=== PATIENT | female | born 1975 | race Caucasian/White ===

== ENCOUNTER 2016-08-04 08:01 | Day surgery (SDC) | payer MEDICAID ==
[2016-07-29 09:58] LABS: ADD SCAN DIFF NO
[2016-07-29 10:07] LABS: BASOPHILS % 0.4 % (0.0-2.0); EOSINOPHILS # 0.1 10^3/ul (0.0-0.5); HEMATOCRIT 40.6 % (37.0-47.0); HEMOGLOBIN 12.9 g/dl (12.0-16.0); LYMPHOCYTES # 1.6 10^3/ul (0.8-2.9); MEAN CORPUSCULAR HEMOGLOBIN 29.1 pg (29.0-33.0); MEAN CORPUSCULAR HGB CONC 31.8 g/dl (32.0-37.0); MEAN CORPUSCULAR VOLUME 91.6 fl (82.0-101.0); MEAN PLATELET VOLUME 8.7 fl (7.4-10.4); MONOCYTE # 0.4 10^3/ul (0.3-0.9); MONOCYTES % 7.5 % (0.0-11.0); NEUTROPHIL # 2.8 10^3/ul (1.6-7.5); NEUTROPHILS % 57.9 % (39.0-77.0); PLATELET COUNT 357 10^3/UL (140-415); RED BLOOD COUNT 4.43 10^6/ul (4.20-5.40); WHITE BLOOD COUNT 4.9 10^3/ul (4.8-10.8)
[2016-07-29 10:24] LABS: INR 0.89; PT RATIO 0.9
[2016-07-29 10:25] LABS: PARTIAL THROMBOPLASTIN TIME 29.2 Sec (25.0-35.0)
[2016-07-29 10:27] LABS: CREATININE 0.54 mg/dl (0.44-1.00); POTASSIUM 4.4 mmol/L (3.5-5.1)
[2016-07-29 10:28] LABS: CALCIUM 9.2 mg/dl (8.4-10.2)
[2016-08-03 17:46] VITALS: BMI 29.1
[2016-08-04] VITALS (13 sets, daily range): BP systolic 111–119; BP diastolic 60–72; PULSE 60–71; RESP 16–18; Ht 154.9 cm; Wt 70.0 kg
[~2016-08-04] VITALS: Ht 154.9 cm; Wt 70.0 kg
[2016-08-04] MEDS ORDERED: CEFAZOLIN 1 GM/50 ML (PMX) 50 ML IVPB ONE (08:30)
[2016-08-04] MEDS: SOD CHLORIDE 0.9% 1,000 ML IV SCH (08:30)
[2016-08-04] MEDS ORDERED: NASO17 NASAL (09:33)
[2016-08-04] MEDS ORDERED: LORA10TA3 PO (09:33)
[2016-08-04] MEDS ORDERED: SUCCINYLCHOLINE CHLORIDE 100 MG/5 ML SYG IV ONE (10:20)
[2016-08-04] MEDS ORDERED: ONDANSETRON 4 MG INJ ONE (10:20)
[2016-08-04] MEDS ORDERED: FENTAnyl 50 MCG/ML VIAL ONE (10:20)
[2016-08-04] MEDS ORDERED: ROCURONIUM 50 MG INJ ONE (10:20)
[2016-08-04] MEDS ORDERED: CEFAZOLIN 1 GM INJ ONE (10:20)
[2016-08-04] MEDS ORDERED: PROPOFOL 20 ML ONE (10:20)
[2016-08-04] MEDS ORDERED: METOCLOPRAMIDE 10 MG INJ ONE (10:21)
[2016-08-04] MEDS ORDERED: ISOSULFAN BLUE 1% 5 ML INJ SC ONE (10:24)
[2016-08-04] MEDS ORDERED: ONDANSETRON 4 MG INJ IV PRN ×2 (11:30→12:30)
[2016-08-04] MEDS ORDERED: MEPERIDINE 25 MG INJ IV PRN (11:30)
[2016-08-04] MEDS ORDERED: FENTAnyl 50 MCG/ML VIAL IV PRN ×2 (11:30)
[2016-08-04] MEDS ORDERED: HYDROmorphONE (0.2 MG/ML) 10ML SYG IV PRN ×3 (11:30)
[2016-08-04] MEDS ORDERED: ACETAMINOPHEN 1000MG/100ML IV 100 ML IVPB PRN (12:30)
--- NOTE | 2016-08-04 12:30 | OPR ---
DATE OF OPERATION: 08/04/2016 PREOPERATIVE DIAGNOSIS: Invasive cancer, right breast. POSTOPERATIVE DIAGNOSIS: Invasive cancer, right breast. OPERATION PERFORMED: Right partial mastectomy and axillary dissection utilizing sentinel lymph node technique. ANESTHESIA: General. ANESTHESIOLOGIST: Joss Pruett MD SURGEON: Eran Jang MD CUSTOMER SUPPORT ANALYST: Caio Miller MD INDICATIONS FOR PROCEDURE: The patient is a 41-year-old female who underwent surveillance mammograp hy. She was found to have a suspicious lesion in her right breast. Workup including core biopsy re vealed an approximately 1.4 cm invasive cancer. She was counseled as to risks versus benefits of br east conservation surgery. She consented and was scheduled for surgery. DESCRIPTION OF PROCEDURE: The patient was brought to the operating theater, placed under general an esthesia. The right breast and axillary regions were prepped and draped in the usual sterile fashio n. The mass was palpable and it was at the 6 o'clock location adjacent to the nipple-areolar border . Approximately 4 mL of 1% Lymphazurin blue dye were then injected peritumorally. The breast was g ently massaged for approximately 12 minutes. A 3 cm incision was made at the right axillary hairlin e. Subcutaneous tissue was dissected with cautery down through the clavipectoral fascia. A dye-sta ined lymphatic was identified and traced to a sentinel node; however, there were additional abnormal appearing lymph nodes associated with this node. Therefore, Dr. Jang made decision to perform an axillary dissection with blunt dissection along the chest wall. The long thoracic nerve was identif ied and kept out of harm's way. More superiorly, the axillary vein was identified and kept out of h arm's way, as was the thoracodorsal neurovascular bundle. The sentinel node and additional level 1 and level 2 axillary nodes were meticulously resected using LigaSure device. They were sent for pat hologic analysis. The wound was irrigated. Minimal bleeding was controlled with cautery. A #10 fl at Naga-Lockhart drain was then brought through the right mid axillary line, cut to size and laid wi thin the axilla. It was secured in place with 2-0 nylon suture in the standard fashion. The skin w as then reapproximated with a 4-0 Vicryl suture in subcuticular fashion. Attention was then directed towards performing partial mastectomy. A periareolar incision was made from the 3 o'clock location through the 6 o'clock location to the 9 o'clock location. Subcutaneous tissue was then dissected with cautery. The skin edges were then elevated with skin hooks and wide circumferential dissection of the tissue associated with the mass then took place. Specimen was sybil vated, transected, oriented, and sent for permanent pathologic analysis. The wound was irrigated. Minimal bleeding was controlled with cautery. The skin was reapproximated with 4-0 Vicryl suture in subcuticular fashion. Dermabond was then applied to both incisions. Patient tolerated the procedu re well. The estimated blood loss was 30 mL. There were no complications and the patient was trans ported in stable condition to the recovery room where circumferential compression dressing was appli ed. Dictated By: ERAN ARGUETA/HUMPHREY Conf#: [id number] DID#: [id number]
[2016-08-04] MEDS: morphine 2 MG INJ IV PRN ×3 (13:45→20:13)
[2016-08-04] MEDS: D5W-0.45 NACL + KCL 20 MEQ 1,000 ML IV SCH ×2 (14:21→21:53)
[2016-08-05] MEDS: D5W-0.45 NACL + KCL 20 MEQ 1,000 ML IV SCH ×2 (06:40→12:19)
[2016-08-05 07:54] VITALS: BP 113/67; RESP 18
[2016-08-05] MEDS: SOD CHLORIDE 0.9% 1,000 ML IV SCH (08:39)
[2016-08-05] MEDS ORDERED: HYDROCODONE/APAP (5/325) TAB PO PRN (11:30)
[2016-08-05 13:00] VITALS: BP 117/68; PULSE 64; RESP 16
[2016-08-05 17:00] VITALS: BP 113/65; PULSE 68; RESP 16
[2016-08-05] MEDS ORDERED: HYDR-3498 PO (17:05)
--- NOTE | 2016-08-05 18:03 | HP ---
DATE OF ADMISSION: 08/04/2016 HISTORY OF PRESENT ILLNESS: The patient is a 41-year-old female who denies any prior medical histor y except for allergic rhinitis. The patient underwent surveillance mammography and was found to hav e suspicious lesion in her right breast. The workup including core biopsy revealed invasive cancer, 1.4 cm. The patient was evaluated by Dr. Jang in general surgery consultation, and the patient wa s brought to the hospital and underwent right partial mastectomy and axillary dissection utilizing s entinel lymph technique. Postoperatively, the patient experienced some significant pain, and the pa cachorro was admitted for further evaluation and management. PAST MEDICAL HISTORY: Per HPI. PAST SURGICAL HISTORY: The patient had minor cutaneous surgery on her back. FAMILY HISTORY: Negative for history of breast or ovarian cancer. SOCIAL HISTORY: The patient lives at home with her family. The patient denies any tobacco use, den ies any alcohol use, and denies any illicit drug use. ALLERGIES: NO KNOWN ALLERGIES. HOME MEDICATIONS: 1. Claritin. 2. Nasonex. REVIEW OF SYSTEMS: A 12-point review of systems is negative unless what is mentioned in the HPI. PHYSICAL ASSESSMENT: GENERAL: Well-developed, well-nourished female who currently is awake, alert. VITAL SIGNS: Temperature is 98.7, pulse is 64, blood pressure is 113/67, respiratory rate 18, oxyge n saturation 98% on room air. HEENT: Head is atraumatic, normocephalic. Pupils equal, round, reactive to light and accommodation . Oral mucosa is pink and moist. NECK: Supple, no cervical lymphadenopathy, no thyromegaly. CHEST: Lungs clear bilaterally. There are no rhonchi, wheezes, or rales noted. Status post right breast surgery with a dry, clean, and intact dressing and right axillary DYLAN. CARDIOVASCULAR: Normal S1, S2. No murmurs, gallops, clicks, or rubs noted. ABDOMEN: Round, soft, nondistended, nontender. Bowel sounds present. There is no guarding and no rebound tenderness. EXTREMITIES: There is no edema, clubbing, cyanosis. Pulses equal bilaterally 2+. SKIN: There is no rash, petechiae noted. NEUROLOGIC: The patient is awake, alert, and oriented x4. No focal deficits noted. Motor strength 5/5 in all extremities. LABORATORY DATA: On admission, CBC: White blood cells 4.9, hemoglobin 12.9, hematocrit 40.6, plate lets 357. Chemistry: Sodium is 139, potassium 4.4, chloride 104, carbon dioxide 26, anion gap 15, BUN is 15, creatinine 0.54, glucose 94, calcium is 9.2. PT is 12.0, INR is 0.89, PTT is 29.2. ASSESSMENT AND PLAN: Invasive cancer of the right breast status post right partial mastectomy and a xillary dissection utilizing sentinel lymph node technique by Dr. Jang on 08/04/2016. We are going to admit patient to the medical/surgical floor. Continue Tylenol and Morphine p.r.n. for pain and Zofran p.r.n. for nausea. Continue IV fluids. Monitor electrolytes. We will continue sequential c ompression device for deep venous thrombosis prophylaxis. Further recommendations based on clinical course. Plan of care discussed with Dr. Richmond. Dictated By: RACHEL PATEL EMBEDDED SOFTWARE MANAGER for KARIME RICHMOND MD SR/NTS Conf#: [id number] DID#: [id number]
== END 2016-08-05 19:45 | disposition home or self-care (01) ==
LOC: SDS 08:01 → MS2 13:10 → SDS 08-05 19:45
PROVIDERS: ATTEND Surgery Surgical Oncology
DX: C50.911 Malignant neoplasm of unspecified site of right female breast (principal)
CPT/HCPCS: 19301; 38500; 38792; 80048; 84703; 85025; 85610; 85730; 88307; 88331; J0330; J0690; J2270; J2405; J2765; J3010; J3480; J7030; Z7512; Z7610; Q9968

== ENCOUNTER 2017-02-07 09:27 | Day surgery (SDC) | payer MEDICAID ==
[~2017-02-07] VITALS: Ht 154.9 cm; Wt 76.5 kg
[~2017-02-07 09:27] MED LIST: HYDR-3498 PO; LORA10TA3 PO; NASO17 NASAL
[2017-02-07 11:03] VITALS: Ht 154.9 cm; Wt 76.5 kg
[2017-02-07 11:06] VITALS: BP 134/91; PULSE 76; RESP 16
[2017-02-07] MEDS ORDERED: CEFAZOLIN 1 GM/50 ML (PMX) 50 ML IVPB ONE ×2 (11:30→14:25)
[2017-02-07] MEDS ORDERED: SOD CHLORIDE 0.9% 1,000 ML IV SCH (11:30)
[2017-02-07] MEDS ORDERED: POLYMYXIN/BACITRACIN 1L IRRIG IRR ONE (11:30)
[2017-02-07] MEDS ORDERED: HEPARIN 1000 UNITS/ML 10 ML INJ ONE (14:25)
[2017-02-07] MEDS ORDERED: MIDAZOLAM 1 MG/ML 2 ML INJ ONE (14:26)
[2017-02-07] MEDS ORDERED: SOD CHLORIDE 0.9% 500 ML ONE (14:26)
[2017-02-07] MEDS ORDERED: FENTAnyl 50 MCG/ML VIAL ONE (14:26)
[2017-02-07] MEDS ORDERED: LIDOCAINE 1%/EPI 30 ML INJ ONE (14:26)
--- NOTE | 2017-02-07 14:41 | RADRPT ---
Echocardiogram Report Patient Name: BONNIE WRIGHT Gender: Female Date: 1975 Study Date: 07-Feb-2017 Motion Picture Narrator: Reg [facility] Location: O Ref. Physician: WINNIE OSBORN Quality: Adequate Procedures: Transthoracic echocardiogram with complete 2D, M-Mode, and doppler examination. Indications: Breast CA. 2D/M Mode Doppler Measurement Value Normal Ranges Measurement Value Normal Ranges LVIDd 2D 4.5 3.5 - 5.6 cm AV Peak Bishop 1.5 m/sec LVIDs 2D 2.8 2.1 - 4.1 cm AV Peak PG 9.0 mmHg LVPWd 2D 0.8 0.6 - 1.1 cm LVOT Peak Bishop 1.0 m/sec AoR Diam 2D 2.6 2.0 - 3.7 cm LVOT Peak PG 4.0 mmHg ESV 2D 30.1 cm3 MV E Peak Bishop 0.9 m/sec EF 2D 66.6 50.0 - 65.0 % MV A Peak Bishop 0.8 m/sec LA Dimen 2D 3.6 2.3 - 4.0 cm MV E/A 1.2 MV Decel Time 190 msec MV E/A 1.2 TR Peak Bishop 2.1 m/sec TR Peak PG 17.0 mmHg RVSP 20.0 mmHg Findings Left Ventricle: Normal left ventricular systolic function. Normal left ventricular cavity size. Normal left ventricular wall thickness. Ejection fraction is visually estimated at 60 %. Right Ventricle: Normal right ventricular size. Normal right ventricular systolic function. Left Atrium: The left atrium is normal in size. Right Atrium: The right atrium is normal in size. Mitral Valve: Mild mitral leaflet calcification. Mild mitral annular calcification. Trace mitral regurgitation. Aortic Valve: Normal appearance of the aortic valve. No significant aortic stenosis or insufficiency. Tricuspid Valve: Normal appearance of the tricuspid valve. Estimated peak PA systolic pressure 20 mmHg. There is trace tricuspid regurgitation. Pericardium: Normal pericardium with no significant pericardial effusion. Aorta: Normal aortic root. IVC: Normal size and normal respiratory collapse consistent with normal right atrial pressure. Conclusions 1.Normal left ventricular systolic function. Normal left ventricular cavity size. Normal left ventricular wall thickness. Ejection fraction is visually estimated at 60 %. 2.Normal right ventricular size. Normal right ventricular systolic function. 3.The left atrium is normal in size. 4.The right atrium is normal in size. 5.No significant valvular stenosis or regurgitation seen. 6.Normal pericardium with no significant pericardial effusion. Electronically Signed By: Shawn Park 07-Feb-2017 14:40:59 -0700 Patient Name: BONNIE WRIGHT Study Date: 07-Feb-2017 [id number]
--- NOTE | 2017-02-07 14:41 | RADRPT ---
Echocardiogram Report Patient Name: BONNIE WRIGHT Gender: Female Date: 1975 Study Date: 07-Feb-2017 [place]: Reg [facility] Location: O Ref. Physician: WINNIE OSBORN Quality: Adequate Procedures: Transthoracic echocardiogram with complete 2D, M-Mode, and doppler examination. Indications: Breast CA. 2D/M Mode Doppler Measurement Value Normal Ranges Measurement Value Normal Ranges LVIDd 2D 4.5 3.5 - 5.6 cm AV Peak Bishop 1.5 m/sec LVIDs 2D 2.8 2.1 - 4.1 cm AV Peak PG 9.0 mmHg LVPWd 2D 0.8 0.6 - 1.1 cm LVOT Peak Bishop 1.0 m/sec AoR Diam 2D 2.6 2.0 - 3.7 cm LVOT Peak PG 4.0 mmHg ESV 2D 30.1 cm3 MV E Peak Bishop 0.9 m/sec EF 2D 66.6 50.0 - 65.0 % MV A Peak Bishop 0.8 m/sec LA Dimen 2D 3.6 2.3 - 4.0 cm MV E/A 1.2 MV Decel Time 190 msec MV E/A 1.2 TR Peak Bishop 2.1 m/sec TR Peak PG 17.0 mmHg RVSP 20.0 mmHg Findings Left Ventricle: Normal left ventricular systolic function. Normal left ventricular cavity size. Normal left ventricular wall thickness. Ejection fraction is visually estimated at 60 %. Right Ventricle: Normal right ventricular size. Normal right ventricular systolic function. Left Atrium: The left atrium is normal in size. Right Atrium: The right atrium is normal in size. Mitral Valve: Mild mitral leaflet calcification. Mild mitral annular calcification. Trace mitral regurgitation. Aortic Valve: Normal appearance of the aortic valve. No significant aortic stenosis or insufficiency. Tricuspid Valve: Normal appearance of the tricuspid valve. Estimated peak PA systolic pressure 20 mmHg. There is trace tricuspid regurgitation. Pericardium: Normal pericardium with no significant pericardial effusion. Aorta: Normal aortic root. IVC: Normal size and normal respiratory collapse consistent with normal right atrial pressure. Conclusions 1.Normal left ventricular systolic function. Normal left ventricular cavity size. Normal left ventricular wall thickness. Ejection fraction is visually estimated at 60 %. 2.Normal right ventricular size. Normal right ventricular systolic function. 3.The left atrium is normal in size. 4.The right atrium is normal in size. 5.No significant valvular stenosis or regurgitation seen. 6.Normal pericardium with no significant pericardial effusion. Electronically Signed By: Shawn Park 07-Feb-2017 14:40:59 -0700 Patient Name: BONNIE WRIGHT Study Date: 07-Feb-2017 [id number]
--- NOTE | 2017-02-07 15:53 | RADRPT ---
PROCEDURE: FLUOROSCOPIC AND ULTRASONOGRAPHIC-GUIDED PLACEMENT OF LEFT CHEST PORT. CLINICAL INDICATION: History of right breast cancer. Venous access for chemotherapy. TECHNIQUE: INTRAPROCEDURE MEDICATIONS: PB antibiotic solution 40 cc applied topically. 1 gram Ancef intravenous ly, intra-op. IV Versed and Fentanyl per protocol. TECHNIQUE: Informed consent was obtained. The procedure, risks, benefits, complications and alternat missy were explained to the patient. Risks including bleeding, infection, and pneumothorax were expl ained. The patient understood and was willing to proceed. A procedural pause was performed. The patient's name, date of , and procedure to be performed w ere verified. The central line was inserted with all elements of maximal sterile barrier technique. All of the fol lowing were used: head covering, facial mask, sterile gown, sterile gloves, a large sterile sheet, h and hygiene, and 2% chlorhexidine for cutaneous antisepsis. The left neck and anterior/superior chest wall were prepped and draped in usual sterile fashion. Limited sonography of the left neck was then performed. Noted is a patent left internal jugular vein . Following the local injection of 1% lidocaine, the left internal jugular vein was punctured under so nographic guidance with a 20-gauge needle through which a 0.018 inch floppy tip guidewire was advanc ed into the superior vena cava with fluoroscopic guidance. The tract was dilated to 5 [place] and t he wire was then replaced with a 0.035 in Glidewire. Serial dilatation was then performed and a 7 F rench peel away sheath was introduced. A site just inferior to the clavicle in the superior anterior left chest wall was localized. One per cent lidocaine was used as local anesthesia. A transverse 3 cm incision was made utilizing a 15 blad e scalpel. Utilizing blunt dissection a subcutaneous pocket was created inferior to the incision. Th e cavity was flushed with approximately 40 cc of PB antibiotic solution. The catheter was tunneled underneath the skin from the newly created pocket to the puncture site in the neck. The central line catheter was pulled through the tract. The catheter was then advanced thr ough the sheath until the tip was positioned in the right atrium. The peel-away sheath was removed. The catheter was flushed and clamped. The catheter was then connected to the 6.6 Monegasque Angiodynamics power port. The port was then placed into the pocket. Prior to closing the instrument and sponge count was verified and was correct. The subcutaneous tissue was closed with 3-0 Vicryl interrupted suture. The skin at the site of the pock et and in the neck was closed with 4-0 Vicryl suture in a running subcuticular technique. The port w as flushed with 2000 units of heparin in 2 cc utilizing a Neal needle. The needle was removed. A dr essing was applied. The patient tolerated procedure well. COMPARISON: None. FINDINGS: Ultrasound images were recorded and stored in the patient's medical record. Final radiographic images demonstrate the tip of the catheter in the upper right atrium. A total of 0.8 minutes of fluoroscopy time was used. The ultrasound images demonstrate the needle entering th e jugular vein. 4 images of the chest were obtained with image intensifier. IMPRESSION: 1. Successful ultrasonographic and fluoroscopic guided placement of left chest port. RPTAT: QQ .Eyad Erickson MD, MD Date Time Electronically viewed and signed by .Eyad Erickson MD, on 02/07/2017 15:40 .R/
[2017-02-07] MEDS ORDERED: HYDROCODONE/APAP (5/325) TAB PO PRN (16:00)
[2017-02-07 16:04] VITALS: BP 115/76; PULSE 75; RESP 16
[2017-02-07 16:09] VITALS: BP 110/69; PULSE 70; RESP 20
[2017-02-07 16:14] VITALS: BP 115/76; PULSE 74; RESP 21
[2017-02-07 16:19] VITALS: BP 114/75; PULSE 76; RESP 23
[2017-02-07] MEDS ORDERED: ONDANSETRON 4 MG INJ IV STA (16:31)
[2017-02-07] MEDS ORDERED: ONDANSETRON 4 MG INJ ONE (16:35)
[2017-02-07 17:06] VITALS: BP 111/73; PULSE 77; RESP 16
== END 2017-02-07 17:50 | disposition home or self-care (01) ==
LOC: EKG 09:27 → SDS 17:50
PROVIDERS: ATTEND Internal Medicine Hematology & Oncology
DX: Z45.2 Encounter for adjustment and management of vascular access device (principal); Z85.3 Personal history of malignant neoplasm of breast
CPT/HCPCS: 36561; 76942; 93306; C1788; J0690; J1644; J2250; J2405; J3010; J7030; J7040; Z7610